=== PATIENT | male | born 1960 | race Caucasian/White ===

== ENCOUNTER 2022-02-27 18:15 | Emergency (ER) | payer OTHER ==
[~2022-02-27] VITALS: Ht 172.7 cm; Wt 77.3 kg
[2022-02-27] MEDS ORDERED: HYDROCHLOROTHIAZIDE 25 MG TABLET PO ONE (18:45)
[2022-02-27] MEDS ORDERED: LORazepam 2 MG TABLET PO ONE (18:45)
[2022-02-27] MEDS ORDERED: CloNIDine HCL 0.2 MG TABLET PO ONE (18:45)
[2022-02-27 19:13] LABS: BASOPHILS % (AUTO) 0.1 % (0.0-2.0); EOSINOPHILS % (AUTO) 0.3 % (1.0-6.0); HEMATOCRIT 44.1 % (41-53); HEMOGLOBIN 14.9 g/dL (13.5-17.5); LYMPHOCYTES # (AUTO) 1.4 K/uL (1.0-4.8); LYMPHOCYTES % (AUTO) 12.9 % (22.0-44.0); MEAN CORPUSCULAR HEMOGLOBIN 30.6 pg (26.0-34.0); MEAN CORPUSCULAR HGB CONC 33.7 G/dL (31.0-37.0); MEAN CORPUSCULAR VOLUME 91 fL (80-100); MONOCYTES # (AUTO) 0.6 K/uL (0.1-1.0); MONOCYTES % (AUTO) 5.8 % (2.0-9.0); NEUTROPHILS # (AUTO) 8.8 K/uL (1.8-7.7); NEUTROPHILS % (AUTO) 80.9 % (40.0-70.0); PLATELET COUNT (AUTO) 205 K/uL (150-450); RED BLOOD CELL COUNT(AUTO) 4.86 MIL/uL (4.50-5.90); RED CELL DISTRIBUTION WIDTH 13.5 % (11.5-14.5)
[2022-02-27 19:20] LABS: ANION GAP 7 mmol/L (8-16); CALCIUM, TOTAL 8.6 mg/dL (8.8-10.5); CARBON DIOXIDE 27 mmol/L (22-29); CHLORIDE 105 mmol/L (98-107); GLUCOSE,RANDOM 115 mg/dL (70-110); POTASSIUM 3.7 mmol/L (3.5-5.1); SODIUM SERUM 139 mmol/L (136-145); UREA NITROGEN, BLOOD 16 mg/dL (7-18)
[2022-02-27 19:22] LABS: GLOMERULAR FILTR. RATE CALC > 60 mL/min (>60)
[2022-02-27] MEDS ORDERED: TRAZ-252 PO (20:14)
[2022-02-27] MEDS ORDERED: ATOR10TA84 PO (20:14)
[2022-02-27] MEDS ORDERED: HYDR25TA2 PO (20:14)
[2022-02-27] MEDS ORDERED: CLON-592 PO (20:14)
[2022-02-27] MEDS ORDERED: VENL25TA47 PO (20:14)
[2022-02-27] MEDS ORDERED: BUPR-344 PO (20:14)
[2022-02-27 20:19] VITALS: BP 118/83
[2022-03-03] MEDS ORDERED: ATOR10TA84 PO (13:52)
== END 2022-02-27 20:54 ==
LOC: EMS 18:15
DX: R07.9 Chest pain, unspecified (principal); F41.9 Anxiety disorder, unspecified; I10 Essential (primary) hypertension; F32.9 Major depressive disorder, single episode, unspecified; Z98.890 Other specified postprocedural states
CPT/HCPCS: 71045; 80048; 84484; 85025; 93005; 99285; 36415-L1; 36415-TC

== ENCOUNTER 2022-02-28 15:19 | Inpatient (IN) | payer OTHER ==
[~2022-02-28] VITALS: Ht 170.2 cm; Wt 105.0 kg
[~2022-02-28 15:19] MED LIST: ATOR10TA PO; BUPR-344 PO; CLON-592 PO; HYDR25TA2 PO; TRAZ-252 PO; VENL25TA47 PO
[2022-02-28 16:03] LABS: COVID AG,FIA SOURCE NASOPHARYNGEAL
[2022-02-28 16:09] LABS: BASOPHILS % (AUTO) 0.3 % (0.0-2.0); EOSINOPHILS % (AUTO) 0.7 % (1.0-6.0); HEMATOCRIT 42.9 % (41-53); HEMOGLOBIN 14.7 g/dL (13.5-17.5); LYMPHOCYTES # (AUTO) 1.7 K/uL (1.0-4.8); MEAN CORPUSCULAR HEMOGLOBIN 30.9 pg (26.0-34.0); MEAN CORPUSCULAR HGB CONC 34.2 G/dL (31.0-37.0); MEAN CORPUSCULAR VOLUME 90 fL (80-100); MONOCYTES % (AUTO) 9.4 % (2.0-9.0); NEUTROPHILS # (AUTO) 8.2 K/uL (1.8-7.7); NEUTROPHILS % (AUTO) 74.6 % (40.0-70.0); PLATELET COUNT (AUTO) 206 K/uL (150-450); RED BLOOD CELL COUNT(AUTO) 4.75 MIL/uL (4.50-5.90); RED CELL DISTRIBUTION WIDTH 13.4 % (11.5-14.5)
[2022-02-28] MEDS ORDERED: LORazepam 1 MG TABLET PO ONE (16:15)
[2022-02-28] MEDS ORDERED: HYDROCHLOROTHIAZIDE 25 MG TABLET PO ONE (16:15)
[2022-02-28] MEDS ORDERED: TraZODone HCL 50 MG TABLET PO ONE (16:15)
[2022-02-28 16:18] LABS: ANION GAP 7 mmol/L (8-16); CARBON DIOXIDE 30 mmol/L (22-29); CHLORIDE 102 mmol/L (98-107); CREATININE 1.28 mg/dL (0.60-1.30); GLUCOSE,RANDOM 107 mg/dL (70-110); POTASSIUM 3.2 mmol/L (3.5-5.1); SODIUM SERUM 139 mmol/L (136-145); UREA NITROGEN, BLOOD 18 mg/dL (7-18)
[2022-02-28 16:19] LABS: GLOMERULAR FILTR. RATE CALC 57 mL/min (>60)
[2022-02-28 16:24] LABS: ALANINE AMINOTRANSFERASE 35 U/L (12-78); ALKALINE PHOSPHATASE 95 U/L (46-116); ASPARTATE AMINOTRANSFERASE 20 U/L (15-37); BILIRUBIN,TOTAL 0.5 mg/dL (0.1-1.0); TOTAL PROTEIN, SERUM 7.2 g/dL (6.4-8.2)
[2022-02-28] MEDS ORDERED: ONDANSETRON HCL 4 MG/2 ML VIAL IVP PRN ×2 (16:45→23:00)
[2022-02-28] MEDS ORDERED: ACETAMINOPHEN 325 MG TABLET PO PRN ×2 (16:45→23:00)
[2022-02-28] MEDS ORDERED: 0.9% SODIUM CHLORIDE 10 ML SYRINGE IVP PRN (16:45)
[2022-02-28 18:23] VITALS: BP 168/94
[2022-02-28] MEDS ORDERED: INFLUENZA VIRUS VACCINE QVS 2022-23 (6MO+)/PF 60 MCG/0.5 ML SYRINGE IM. ONE (19:30)
[2022-02-28] MEDS ORDERED: PNEUMOCOCCAL VACCINE POLYVALENT 0.5 ML VIAL [PPSV23] IM. ONE (19:30)
[2022-02-28 19:36] VITALS: BP 131/111
[2022-02-28] MEDS ORDERED: AmLODIPine BESYLATE 10 MG TABLET PO ONE (23:00)
[2022-02-28] MEDS ORDERED: BISACODYL 10 MG RECTAL RECTAL SUPPOSITORY PR PRN (23:00)
[2022-02-28] MEDS ORDERED: IPRATROPIUM BROMIDE 0.5 MG/2.5 ML NEB SOLUTION NEB PRN (23:00)
[2022-02-28] MEDS ORDERED: MAGNESIUM HYDROXIDE SUSPENSION 30 ML UDCUP PO PRN (23:00)
[2022-02-28] MEDS ORDERED: ALBUTEROL SULFATE 2.5 MG/0.5 ML NEB SOLUTION NEB PRN (23:00)
[2022-02-28] MEDS: ZOLPIDEM TARTRATE 5 MG TABLET PO PRN (23:21)
[2022-02-28] MEDS: HEPARIN SODIUM,PORCINE 5,000 UNITS/ML VIAL SQ SCH (23:22)
[2022-03-01 04:40] VITALS: BP 116/81
[2022-03-01 07:58] VITALS: BP 122/75
[2022-03-01 08:05] VITALS: BP 140/100
[2022-03-01 08:30] VITALS: BP 122/75
[2022-03-01] MEDS ORDERED: HYDROCHLOROTHIAZIDE 25 MG TABLET PO SCH (09:00)
[2022-03-01] MEDS: HYDROCHLOROTHIAZIDE 25 MG TABLET PO SCH (09:18)
[2022-03-01] MEDS: AmLODIPine BESYLATE 10 MG TABLET PO SCH (09:18)
[2022-03-01] MEDS: HEPARIN SODIUM,PORCINE 5,000 UNITS/ML VIAL SQ SCH ×3 (09:18→23:58)
[2022-03-01] MEDS: PANTOPRAZOLE SODIUM 40 MG DR TABLET PO SCH (09:18)
[2022-03-01] MEDS ORDERED: VENLAFAXINE HCL 25 MG TABLET PO SCH (15:00)
[2022-03-01] MEDS: ClonazePAM 0.5 MG TABLET PO SCH (15:28)
[2022-03-01] MEDS: VENLAFAXINE HCL 50 MG TABLET PO SCH (15:29)
[2022-03-01 15:45] VITALS: BP 151/112
[2022-03-01 18:35] LABS: ANION GAP 10 mmol/L (8-16); CALCIUM, TOTAL 9.2 mg/dL (8.8-10.5); CARBON DIOXIDE 28 mmol/L (22-29); CHLORIDE 99 mmol/L (98-107); CREATININE 1.18 mg/dL (0.60-1.30); GLOMERULAR FILTR. RATE CALC > 60 mL/min (>60); GLUCOSE,RANDOM 168 mg/dL (70-110); POTASSIUM 3.1 mmol/L (3.5-5.1); SODIUM SERUM 137 mmol/L (136-145); UREA NITROGEN, BLOOD 13 mg/dL (7-18)
[2022-03-01 20:41] VITALS: BP 160/111
[2022-03-01] MEDS: ZOLPIDEM TARTRATE 5 MG TABLET PO PRN (20:44)
[2022-03-01] MEDS: LABETALOL HCL 5 MG/ML 20 ML VIAL IVP PRN (20:45)
[2022-03-01] MEDS ORDERED: TraZODone HCL 50 MG TABLET PO SCH ×2 (21:00)
[2022-03-02 00:04] VITALS: BP 132/81
[2022-03-02 04:35] VITALS: BP 132/95
[2022-03-02 06:06] LABS: AMPHET/METH SCREEN,URINE NEGATIVE (NEGATIVE); BARBITURATE SCREEN, URINE NEGATIVE (NEGATIVE); BENZODIAZEPINES SCREEN,URINE NEGATIVE (NEGATIVE); CANNABINOID SCREEN,URINE NEGATIVE (NEGATIVE); COCAINE SCREEN,URINE NEGATIVE (NEGATIVE); METHADONE SCREEN, URINE NEGATIVE (NEGATIVE); OPIATE SCREEN,URINE NEGATIVE (NEGATIVE)
[2022-03-02 06:08] LABS: PHENCYCLIDINE SCREEN,URINE NEGATIVE (NEGATIVE)
[2022-03-02 08:00] VITALS: BP 131/84
[2022-03-02] MEDS: ATORVASTATIN CALCIUM 10 MG TABLET PO SCH (08:17)
[2022-03-02] MEDS: HEPARIN SODIUM,PORCINE 5,000 UNITS/ML VIAL SQ SCH ×3 (08:17→23:42)
[2022-03-02] MEDS: AmLODIPine BESYLATE 10 MG TABLET PO SCH (08:17)
[2022-03-02] MEDS: ClonazePAM 0.5 MG TABLET PO SCH (08:17)
[2022-03-02] MEDS: HYDROCHLOROTHIAZIDE 25 MG TABLET PO SCH (08:17)
[2022-03-02] MEDS: PANTOPRAZOLE SODIUM 40 MG DR TABLET PO SCH (08:17)
[2022-03-02] MEDS: VENLAFAXINE HCL 50 MG TABLET PO SCH (08:20)
[2022-03-02] MEDS ORDERED: HYDROCHLOROTHIAZIDE 25 MG TABLET PO SCH (09:00)
[2022-03-02] MEDS ORDERED: BuPROPion HCL XL 150 MG ER TABLET PO SCH (09:00)
[2022-03-02] MEDS ORDERED: BuPROPion HCL 75 MG TABLET PO SCH (09:00)
[2022-03-02] MEDS ORDERED: POTASSIUM CHLORIDE 20 MEQ ER TABLET PO ONE (09:45)
[2022-03-02 15:09] VITALS: BP 137/90
[2022-03-02] MEDS: VENLAFAXINE HCL 150 MG ER CAPSULE PO SCH (15:47)
[2022-03-02 20:00] VITALS: BP 164/106
[2022-03-02] MEDS: TraZODone HCL 150 MG TABLET PO SCH (20:08)
[2022-03-02 21:30] VITALS: BP 138/91
[2022-03-02] MEDS: ZOLPIDEM TARTRATE 5 MG TABLET PO PRN (21:36)
[2022-03-03 04:30] VITALS: BP 151/93
[2022-03-03 06:51] LABS: BASOPHILS % (AUTO) 0.1 % (0.0-2.0); EOSINOPHILS % (AUTO) 1.2 % (1.0-6.0); HEMATOCRIT 46.4 % (41-53); HEMOGLOBIN 15.8 g/dL (13.5-17.5); LYMPHOCYTES # (AUTO) 3.6 K/uL (1.0-4.8); LYMPHOCYTES % (AUTO) 32.6 % (22.0-44.0); MEAN CORPUSCULAR HEMOGLOBIN 30.7 pg (26.0-34.0); MEAN CORPUSCULAR HGB CONC 34.1 G/dL (31.0-37.0); MEAN CORPUSCULAR VOLUME 90 fL (80-100); MONOCYTES # (AUTO) 1.1 K/uL (0.1-1.0); MONOCYTES % (AUTO) 10.2 % (2.0-9.0); NEUTROPHILS # (AUTO) 6.1 K/uL (1.8-7.7); NEUTROPHILS % (AUTO) 55.9 % (40.0-70.0); PLATELET COUNT (AUTO) 207 K/uL (150-450); RED BLOOD CELL COUNT(AUTO) 5.15 MIL/uL (4.50-5.90); RED CELL DISTRIBUTION WIDTH 13.6 % (11.5-14.5)
[2022-03-03 07:16] LABS: ALANINE AMINOTRANSFERASE 30 U/L (12-78); ALBUMIN 3.9 g/dL (3.4-5.0); ALKALINE PHOSPHATASE 95 U/L (46-116); ANION GAP 10 mmol/L (8-16); ASPARTATE AMINOTRANSFERASE 17 U/L (15-37); BILIRUBIN,TOTAL 0.7 mg/dL (0.1-1.0); CALCIUM, TOTAL 9.4 mg/dL (8.8-10.5); CARBON DIOXIDE 29 mmol/L (22-29); CHLORIDE 101 mmol/L (98-107); CREATININE 1.13 mg/dL (0.60-1.30); GLUCOSE,RANDOM 107 mg/dL (70-110); SODIUM SERUM 140 mmol/L (136-145); TOTAL PROTEIN, SERUM 7.4 g/dL (6.4-8.2); UREA NITROGEN, BLOOD 12 mg/dL (7-18)
[2022-03-03 07:22] LABS: GLOMERULAR FILTR. RATE CALC > 60 mL/min (>60); POTASSIUM 2.8 mmol/L (3.5-5.1)
[2022-03-03 08:00] VITALS: BP 137/91
[2022-03-03] MEDS: HEPARIN SODIUM,PORCINE 5,000 UNITS/ML VIAL SQ SCH ×3 (08:10→23:28)
[2022-03-03] MEDS: HYDROCHLOROTHIAZIDE 25 MG TABLET PO SCH (08:10)
[2022-03-03] MEDS: ATORVASTATIN CALCIUM 10 MG TABLET PO SCH (08:10)
[2022-03-03] MEDS: VENLAFAXINE HCL 150 MG ER CAPSULE PO SCH (08:10)
[2022-03-03] MEDS: PANTOPRAZOLE SODIUM 40 MG DR TABLET PO SCH (08:10)
[2022-03-03] MEDS: AmLODIPine BESYLATE 10 MG TABLET PO SCH (08:10)
[2022-03-03] MEDS: ClonazePAM 0.5 MG TABLET PO SCH (08:10)
[2022-03-03] MEDS: POTASSIUM CHLORIDE 20 MEQ ER TABLET PO PRN ×2 (08:11→15:57)
[2022-03-03] MEDS ORDERED: BuPROPion HCL XL 150 MG ER TABLET PO SCH (09:00)
[2022-03-03] MEDS ORDERED: AMLO-258 PO (13:52)
[2022-03-03] MEDS ORDERED: ATOR10TA PO (13:52)
[2022-03-03] MEDS ORDERED: BUPR-50 PO (13:52)
[2022-03-03] MEDS ORDERED: TRAZ150T80 PO (13:53)
[2022-03-03] MEDS ORDERED: HYDR25TA2 PO (13:53)
[2022-03-03] MEDS ORDERED: CLON-592 PO (13:53)
[2022-03-03] MEDS ORDERED: VENL-68 PO (13:54)
[2022-03-03 15:13] VITALS: BP_SYST 106; BP_SYST 146; BP_DIAS 65; BP_DIAS 89
[2022-03-03 19:48] VITALS: BP 151/106
[2022-03-03 20:00] VITALS: BP 160/102
[2022-03-03] MEDS: TraZODone HCL 150 MG TABLET PO SCH (20:05)
[2022-03-03] MEDS: LABETALOL HCL 5 MG/ML 20 ML VIAL IVP PRN (20:06)
[2022-03-03 21:00] VITALS: BP 135/86
[2022-03-03] MEDS: ZOLPIDEM TARTRATE 5 MG TABLET PO PRN (22:05)
[2022-03-04 04:03] VITALS: BP 121/77
== END 2022-03-04 09:40 | DRG 641 ==
LOC: EMS 15:25 → 6S 17:24
PROVIDERS: ADMIT Hospitalist; ATTEND Hospitalist
DX: E87.6 Hypokalemia (principal); R45.851 Suicidal ideations; F32.9 Major depressive disorder, single episode, unspecified; Z20.822 Contact with and (suspected) exposure to COVID-19; E78.5 Hyperlipidemia, unspecified; F41.9 Anxiety disorder, unspecified; I10 Essential (primary) hypertension
CPT/HCPCS: 80048; 80053; 83735; 84132; 85025; 99285; G0480; J1644; J3490